=== PATIENT | male | born 1975 | race African-American/Black ===

== ENCOUNTER 2019-11-29 16:14 | Inpatient (IN) | payer MEDICAID, OTHER ==
[~2019-11-29] VITALS: Ht 175.3 cm; Wt 73.9 kg
[~2019-11-29 16:14] MED LIST: NALT50TA PO; QUET200T29 PO
[2019-11-29 17:10] LABS: HEMATOCRIT 43.6 % (41-53); HEMOGLOBIN 14.7 g/dL (13.5-17.5); LYMPHOCYTES # (AUTO) 2.2 K/uL (1.0-4.8); LYMPHOCYTES % (AUTO) 31.8 % (22.0-44.0); MEAN CORPUSCULAR HEMOGLOBIN 29.3 pg (26.0-34.0); MEAN CORPUSCULAR HGB CONC 33.7 G/dL (31.0-37.0); MEAN CORPUSCULAR VOLUME 87 fL (80-100); MONOCYTES # (AUTO) 0.5 K/uL (0.1-1.0); MONOCYTES % (AUTO) 7.8 % (2.0-9.0); NEUTROPHILS % (AUTO) 58.4 % (40.0-70.0); PLATELET COUNT (AUTO) 258 K/uL (150-450); RED BLOOD CELL COUNT(AUTO) 5.01 MIL/uL (4.50-5.90); RED CELL DISTRIBUTION WIDTH 14.3 % (11.5-14.5)
[2019-11-29 17:41] LABS: AMPHET/METH SCREEN,URINE NEGATIVE (NEGATIVE); BARBITURATE SCREEN, URINE NEGATIVE (NEGATIVE); BENZODIAZEPINES SCREEN,URINE NEGATIVE (NEGATIVE); CANNABINOID SCREEN,URINE NEGATIVE (NEGATIVE); COCAINE SCREEN,URINE NEGATIVE (NEGATIVE); METHADONE SCREEN, URINE NEGATIVE (NEGATIVE); OPIATE SCREEN,URINE NEGATIVE (NEGATIVE)
[2019-11-29 17:43] LABS: PHENCYCLIDINE SCREEN,URINE NEGATIVE (NEGATIVE)
[2019-11-29 17:43] LABS: CARBON DIOXIDE 27 mmol/L (22-29); CHLORIDE 106 mmol/L (98-107); SODIUM SERUM 143 mmol/L (136-145)
[2019-11-29 17:44] LABS: ANION GAP 10 mmol/L (8-16); CALCIUM, TOTAL 9.2 mg/dL (8.8-10.5); CREATININE 1.42 mg/dL (0.60-1.30); GLOMERULAR FILTR. RATE CALC > 60 mL/min (>60); GLUCOSE,RANDOM 92 mg/dL (70-110); UREA NITROGEN, BLOOD 9 mg/dL (7-18)
[2019-11-29 17:49] LABS: ALANINE AMINOTRANSFERASE 19 U/L (12-78); ALBUMIN 3.7 g/dL (3.4-5.0); ALKALINE PHOSPHATASE 55 U/L (46-116); ASPARTATE AMINOTRANSFERASE 8 U/L (15-37); BILIRUBIN,TOTAL 0.3 mg/dL (0.1-1.0); TOTAL PROTEIN, SERUM 7.3 g/dL (6.4-8.2)
[2019-11-29 20:40] VITALS: BP 114/81
[2019-11-29] MEDS: ZOLPIDEM TARTRATE 10 MG TABLET PO PRN (21:10)
[2019-11-29] MEDS: HALOPERIDOL 5 MG TABLET PO PRN (21:37)
[2019-11-30] MEDS: LORazepam 2 MG TABLET PO PRN (00:38)
[2019-11-30 01:27] VITALS: BP 111/66
[2019-11-30 08:09] LABS: CHOL/HDL RATIO 4.1 (4.2-7.3)
[2019-11-30 08:24] VITALS: BP 134/88
[2019-11-30] MEDS: QUEtiapine FUMARATE 300 MG ER TABLET PO SCH (20:32)
[2019-11-30 21:01] VITALS: BP 120/68
[2019-12-01] MEDS: LORazepam 2 MG TABLET PO PRN ×2 (08:10→15:11)
[2019-12-01] MEDS: HALOPERIDOL 5 MG TABLET PO PRN ×2 (08:11→15:12)
[2019-12-01] MEDS: SERTRALINE HCL 50 MG TABLET PO SCH (08:11)
[2019-12-01] MEDS ORDERED: NICOTINE 14 MG/24 HOUR PATCH TD PRN (10:00)
[2019-12-01] MEDS ORDERED: CloNIDine HCL 0.1 MG TABLET PO PRN (10:00)
[2019-12-01] MEDS ORDERED: ONDANSETRON HCL 4 MG TABLET PO PRN (10:00)
[2019-12-01] MEDS ORDERED: ALBUTEROL SULFATE HFA 90 MCG/PUFF 8 GM INHALER IH PRN (10:00)
[2019-12-01] MEDS ORDERED: IBUPROFEN 400 MG TABLET PO PRN (10:00)
[2019-12-01] MEDS ORDERED: PETROLATUM,WHITE 28 GM JELLY TP PRN (10:00)
[2019-12-01] MEDS ORDERED: ACETAMINOPHEN 325 MG TABLET PO PRN (10:00)
[2019-12-01] MEDS ORDERED: MAGNESIUM HYDROXIDE SUSPENSION 30 ML UDCUP PO PRN (10:00)
[2019-12-01] MEDS ORDERED: GuaiFENesin/D-METHORPHAN [SUGAR-FREE] 200-20MG/10 ML SYRUP UDCUP PO PRN (10:00)
[2019-12-01] MEDS ORDERED: MAG HYDROX/AL HYDROX/SIMETH ES 30 ML SUSPENSION UDCUP PO PRN (10:00)
[2019-12-01] MEDS ORDERED: LOPERAMIDE HCL 2 MG CAPSULE PO PRN (10:00)
[2019-12-01] MEDS ORDERED: DOCUSATE SODIUM 100 MG CAPSULE PO PRN (10:00)
[2019-12-01 16:30] VITALS: BP 115/70
[2019-12-01] MEDS: QUEtiapine FUMARATE 300 MG ER TABLET PO SCH (20:21)
[2019-12-02] MEDS: SERTRALINE HCL 50 MG TABLET PO SCH (08:27)
[2019-12-02] MEDS: HALOPERIDOL 5 MG TABLET PO PRN (08:27)
[2019-12-02] MEDS: LORazepam 2 MG TABLET PO PRN (08:27)
[2019-12-02 10:19] VITALS: BP 122/81
[2019-12-02 16:30] VITALS: BP 116/76
[2019-12-02] MEDS: QUEtiapine FUMARATE 300 MG ER TABLET PO SCH (20:17)
[2019-12-02] MEDS: ZOLPIDEM TARTRATE 10 MG TABLET PO PRN (20:20)
[2019-12-03 01:00] VITALS: BP 125/76
[2019-12-03] MEDS: SERTRALINE HCL 50 MG TABLET PO SCH (08:21)
[2019-12-03] MEDS: HALOPERIDOL 5 MG TABLET PO PRN (08:38)
[2019-12-03] MEDS: LORazepam 2 MG TABLET PO PRN (08:38)
[2019-12-03] MEDS ORDERED: QUET300T2 PO (09:31)
[2019-12-03] MEDS ORDERED: SERT50TA12 PO (09:31)
== END 2019-12-03 10:15 | disposition home or self-care (01) | DRG 885 ==
LOC: EMS 16:16 → 3EI 19:30
PROVIDERS: ADMIT Psychiatry & Neurology Psychiatry; ATTEND Psychiatry & Neurology Psychiatry
DX: F25.0 Schizoaffective disorder, bipolar type (principal); N17.9 Acute kidney failure, unspecified; R45.851 Suicidal ideations; E78.5 Hyperlipidemia, unspecified; F17.200 Nicotine dependence, unspecified, uncomplicated; F41.9 Anxiety disorder, unspecified; G44.209 Tension-type headache, unspecified, not intractable; K59.00 Constipation, unspecified
CPT/HCPCS: G0480